=== PATIENT | male | born 1980 | race Caucasian/White ===

== ENCOUNTER 2024-12-19 16:01 | Emergency (ER) | payer SELFPAY ==
[~2024-12-19] VITALS: Ht 195.6 cm; Wt 83.9 kg
[2024-12-19 16:05] VITALS: PULSE 94; RESP 20; TEMP 97.4; O2SAT 98
== END 2024-12-19 16:40 | disposition home or self-care (01) ==
LOC: FSED 16:06
DX: Z00.00 Encounter for general adult medical examination without abnormal findings (principal)
CPT/HCPCS: 71045; 80053; 81003; 85025; 93005; 99283